=== PATIENT | female | born 1970 | race Caucasian/White ===

== ENCOUNTER → 2016-10-26 | Outpatient (CLI) | payer OTHER ==
--- NOTE | 2016-10-26 14:46 | US ---
Transabdominal and Transvaginal Pelvic Ultrasound History: Perimenopausal with last menstrual period in January 2016. Possible fibroid on exam. Comparison: None available. Findings: Transabdominal: The uterus measures 5.8 x 2.7 x 2.6 cm. The bladder is normal. Transvaginal: No fibroids are present. The endometrium is homogeneous and measures 3 mm. The left ova ry measures 1.7 x 1.2 x 1.9 cm. The right ovary measures 1.7 x 2.7 x 0.9 cm. No adnexal masses are i dentified. Normal arterial blood flow is documented to both ovaries by Doppler ultrasound. There is n o free fluid. Impression: Normal pelvic ultrasound.
== END ==
LOC: FIMAGING 12:49
PROVIDERS: ATTEND Obstetrics & Gynecology
DX: R19.00 Intra-abdominal and pelvic swelling, mass and lump, unspecified site (principal)

== ENCOUNTER → 2017-05-13 | Outpatient (CLI) | payer OTHER | LOC: FIMAGING 09:58 | PROVIDERS: ATTEND Obstetrics & Gynecology | DX: Z12.31 Encounter for screening mammogram for malignant neoplasm of breast (principal) | CPT/HCPCS: G0202 ==

== ENCOUNTER → 2018-05-28 | Outpatient (CLI) | payer OTHER | LOC: FIMAGING 10:48 | PROVIDERS: ATTEND Obstetrics & Gynecology | DX: Z12.31 Encounter for screening mammogram for malignant neoplasm of breast (principal); Z80.3 Family history of malignant neoplasm of breast ==

== ENCOUNTER → 2019-02-27 | Outpatient (CLI) | payer OTHER | LOC: FIMAGING 07:44 ==

== ENCOUNTER → 2019-03-17 | Day surgery (SDC) | payer OTHER | LOC: FIMAGING 07:16 ==